=== PATIENT | male | born 1935 | race Caucasian/White ===

== ENCOUNTER 2017-09-13 10:01 | Inpatient (IN) | payer OTHER, MEDICARE, BC ==
[~2017-09-13] VITALS: Ht 185.4 cm; Wt 80.0 kg
[2017-09-13 10:34] LABS: BASOPHILS % (AUTO) 0.3 % (0-1); EOSINOPHILS # (AUTO) 0.1 X10'3 (0-0.9); EOSINOPHILS % (AUTO) 1.3 % (0-6); LYMPHOCYTES # (AUTO) 0.6 X10'3 (1.1-4.8); LYMPHOCYTES % (AUTO) 10.2 % (21-51); MEAN CORPUSCULAR HEMOGLOBIN 28.9 PG (27.0-31.0); MEAN CORPUSCULAR HGB CONC 33.2 % (33.0-36.5); MEAN CORPUSCULAR VOLUME 87.1 FL (78-98); MEAN PLATELET VOLUME 6.8 FL (7.4-10.4); MONOCYTES # (AUTO) 0.5 X10'3 (0-0.9); MONOCYTES % (AUTO) 8.8 % (2-12); NEUTROPHILS # (AUTO) 4.5 X10'3 (1.8-7.7); NEUTROPHILS % (AUTO) 79.4 % (42-75); PLATELET COUNT 307 X10'3 (140-440); RED BLOOD COUNT 2.05 X10'6 (4.70-6.10); RED CELL DISTRIBUTION WIDTH 21.1 % (11.5-14.5); WHITE BLOOD COUNT 5.7 X10'3 (4.5-11.0)
[2017-09-13 10:39] LABS: HEMATOCRIT 17.9 % (42.0-52.0); HEMOGLOBIN 5.9 g/dl (14.0-17.9)
[2017-09-13] MEDS ORDERED: ASPI-611 PO (10:48)
[2017-09-13] MEDS ORDERED: LEVO25TA7 PO (10:48)
[2017-09-13] MEDS ORDERED: GABA600T2 PO ×2 (10:48)
[2017-09-13] MEDS ORDERED: MELA3TAB PO (10:48)
[2017-09-13] MEDS ORDERED: METO25TA6 PO (10:48)
[2017-09-13] MEDS ORDERED: VALE100C PO (10:48)
[2017-09-13] MEDS ORDERED: TRAZ-146 PO (10:48)
[2017-09-13] MEDS ORDERED: TRAM50TA2 PO (10:48)
[2017-09-13] MEDS ORDERED: PRAV40TA3 PO (10:48)
[2017-09-13] MEDS ORDERED: DULO-31 PO (10:48)
[2017-09-13] MEDS ORDERED: PANT-47 PO (10:48)
[2017-09-13] MEDS ORDERED: DILT30TA5 PO (10:48)
[2017-09-13 10:57] LABS: ALANINE AMINOTRANSFERASE 13 U/L (12-78); ALBUMIN 2.8 G/DL (3.4-5.0); ALBUMIN/GLOBULIN RATIO 0.8 (1.1-1.5); ALKALINE PHOSPHATASE 57 IU/L (46-116); ANION GAP 6 (8-16); ASPARTATE AMINO TRANSFERASE 13 U/L (10-37); BILIRUBIN,TOTAL 0.5 MG/DL (0.1-1.0); BLOOD UREA NITROGEN 22 MG/DL (7-18); BUN/CREATININE RATIO 27.2 (5.4-32.0); CALCIUM 7.6 MG/DL (8.5-10.1); CHLORIDE 104 MMOL/L (99-107); CREATININE 0.81 MG/DL (0.60-1.10); GLUCOSE 107 MG/DL (70-104); MAGNESIUM 2.1 MG/DL (1.5-2.4); SODIUM 140 MMOL/L (135-145); TOTAL PROTEIN 6.5 G/DL (6.4-8.2); eGFR > 90 ML/MIN
[2017-09-13] MEDS ORDERED: pantoprazole 40MG/NS 100ML BAG 100 ML IV ONE (11:30)
[2017-09-13] MEDS ORDERED: pantoprazole 40 MG vial IV ONE (11:30)
[2017-09-13] MEDS ORDERED: ondansetron/PF 4mg/2ml inj IV PRN (12:05)
[2017-09-13] MEDS ORDERED: magnesium 4gm in 100ml NS 100 ML IV PRN (12:05)
[2017-09-13] MEDS ORDERED: mag hydrox/Alum hydrox/simeth 30ml oral suspension PO PRN (12:05)
[2017-09-13] MEDS ORDERED: acetaminophen 325mg tablet PO PRN (12:05)
[2017-09-13] MEDS ORDERED: magnesium 2GM in 50ml NS 50 ML IV PRN (12:05)
[2017-09-13] MEDS ORDERED: potassium Cl 40MEQ/NS 500ml 500 ML IV PRN ×2 (12:05)
[2017-09-13] MEDS ORDERED: potassium Cl 20 mEq SR tablet PO PRN ×2 (12:05)
[2017-09-13] MEDS ORDERED: magnesium Cl slow-release 64mg tablet PO PRN (12:05)
[2017-09-13] MEDS ORDERED: traMADol 50MG tablet PO PRN (12:05)
[2017-09-13] MEDS ORDERED: PEG 3350/Na sulf,bicarb,Cl/KCl oral sol 4 liter bottle PO ONE (12:15)
[2017-09-13 12:54] VITALS: BP 110/51
[2017-09-13] MEDS: normal saline 1000ml 1,000 ML IV SCH (13:20)
[2017-09-13] MEDS: diltiazem 30mg tablet PO SCH ×2 (13:22→20:19)
[2017-09-13 13:44] LABS: OCCULT BLOOD STOOL POSITIVE (Neg)
[2017-09-13] MEDS: pantoprazole 40MG/NS 100ML BAG 100 ML IV SCH ×3 (14:00→20:20)
[2017-09-13 15:08] VITALS: BP 116/60
[2017-09-13 16:12] VITALS: BP 115/61
[2017-09-13 16:30] VITALS: BP 120/65
[2017-09-13] MEDS: gabapentin 300mg capsule PO SCH (17:05)
[2017-09-13 17:30] VITALS: BP 145/73
[2017-09-13 18:40] VITALS: BP_SYST 103; BP_SYST 145; BP_DIAS 53; BP_DIAS 58
[2017-09-13] MEDS: metoprolol tartrate 25mg tablet PO SCH (20:19)
[2017-09-13] MEDS: traZODone 50mg tablet PO SCH (20:19)
[2017-09-13 20:50] LABS: HEMATOCRIT 23.5 % (42.0-52.0); HEMOGLOBIN 8.1 g/dl (14.0-17.9); MEAN CORPUSCULAR HEMOGLOBIN 30.3 PG (27.0-31.0); MEAN CORPUSCULAR HGB CONC 34.5 % (33.0-36.5); MEAN PLATELET VOLUME 6.8 FL (7.4-10.4); PLATELET COUNT 226 X10'3 (140-440); RED BLOOD COUNT 2.67 X10'6 (4.70-6.10); RED CELL DISTRIBUTION WIDTH 17.6 % (11.5-14.5); WHITE BLOOD COUNT 4.4 X10'3 (4.5-11.0)
[2017-09-13] MEDS ORDERED: pravastatin 40mg tablet PO SCH (21:00)
[2017-09-14] VITALS (19 sets, daily range): BP systolic 112–147; BP diastolic 50–80
[2017-09-14] MEDS: gabapentin 300mg capsule PO SCH ×3 (00:26→16:00)
[2017-09-14] MEDS: normal saline 1000ml 1,000 ML IV SCH ×2 (00:27→14:44)
[2017-09-14] MEDS: pantoprazole 40MG/NS 100ML BAG 100 ML IV SCH ×5 (00:27→19:43)
[2017-09-14 05:29] LABS: BASOPHILS % (AUTO) 0.4 % (0-1); EOSINOPHILS # (AUTO) 0.1 X10'3 (0-0.9); EOSINOPHILS % (AUTO) 1.4 % (0-6); HEMATOCRIT 22.4 % (42.0-52.0); HEMOGLOBIN 7.6 g/dl (14.0-17.9); LYMPHOCYTES # (AUTO) 0.8 X10'3 (1.1-4.8); LYMPHOCYTES % (AUTO) 20.4 % (21-51); MEAN CORPUSCULAR VOLUME 88.2 FL (78-98); MEAN PLATELET VOLUME 6.6 FL (7.4-10.4); MONOCYTES # (AUTO) 0.4 X10'3 (0-0.9); MONOCYTES % (AUTO) 10.3 % (2-12); NEUTROPHILS # (AUTO) 2.6 X10'3 (1.8-7.7); NEUTROPHILS % (AUTO) 67.5 % (42-75); PLATELET COUNT 215 X10'3 (140-440); RED BLOOD COUNT 2.54 X10'6 (4.70-6.10); RED CELL DISTRIBUTION WIDTH 17.5 % (11.5-14.5); WHITE BLOOD COUNT 3.8 X10'3 (4.5-11.0)
[2017-09-14 06:20] LABS: ALBUMIN 2.4 G/DL (3.4-5.0); ANION GAP 7 (8-16); BLOOD UREA NITROGEN 14 MG/DL (7-18); CALCIUM 7.3 MG/DL (8.5-10.1); CHLORIDE 108 MMOL/L (99-107); GLUCOSE 86 MG/DL (70-104); MAGNESIUM 1.9 MG/DL (1.5-2.4); POTASSIUM 3.7 MMOL/L (3.5-5.1); SODIUM 143 MMOL/L (135-145); TOTAL CARBON DIOXIDE 28.2 MMOL/L (24-32); eGFR > 90 ML/MIN
[2017-09-14] MEDS: K and/or MAG REPLACEMENT MC SCH (08:00)
[2017-09-14] MEDS: duloxetine 30mg CAPSULE.DR PO SCH (08:08)
[2017-09-14] MEDS: atorvastatin 10mg tablet PO SCH (08:08)
[2017-09-14] MEDS: diltiazem 30mg tablet PO SCH ×3 (08:08→20:32)
[2017-09-14] MEDS: levoTHYROXINE 25mcg tablet PO SCH (08:08)
[2017-09-14] MEDS: metoprolol tartrate 25mg tablet PO SCH ×2 (08:08→20:31)
[2017-09-14] MEDS ORDERED: fentaNYL/PF 50MCG/1 ML 2ML syringe ONE (13:12)
[2017-09-14] MEDS ORDERED: MIDAZolam 5mg/ml 2ml vial ONE (13:12)
[2017-09-14] MEDS ORDERED: LIDOcaine Viscous 15ml cup ONE (13:13)
[2017-09-14 17:48] LABS: HEMATOCRIT 23.4 % (42.0-52.0); MEAN CORPUSCULAR HGB CONC 34.4 % (33.0-36.5); MEAN CORPUSCULAR VOLUME 87.3 FL (78-98); MEAN PLATELET VOLUME 6.5 FL (7.4-10.4); PLATELET COUNT 206 X10'3 (140-440); RED BLOOD COUNT 2.68 X10'6 (4.70-6.10); RED CELL DISTRIBUTION WIDTH 17.9 % (11.5-14.5); WHITE BLOOD COUNT 4.2 X10'3 (4.5-11.0)
[2017-09-14] MEDS ORDERED: normal saline 1000ml 1,000 ML IV SCH (20:19)
[2017-09-14] MEDS ORDERED: simethicone 40mg/0.6ml oral drops 30ml MC ONE (20:20)
[2017-09-14] MEDS ORDERED: fentaNYL/PF 50MCG/1 ML 2ML syringe IV PRN (20:20)
[2017-09-14] MEDS ORDERED: MIDAZolam 5mg/ml 2ml vial IV PRN (20:20)
[2017-09-14] MEDS: traZODone 50mg tablet PO SCH (20:31)
[2017-09-15] MEDS: gabapentin 300mg capsule PO SCH ×2 (00:05→08:00)
[2017-09-15] MEDS: pantoprazole 40MG/NS 100ML BAG 100 ML IV SCH ×3 (00:05→11:13)
[2017-09-15 04:30] VITALS: BP 128/72
[2017-09-15] MEDS: normal saline 1000ml 1,000 ML IV SCH (04:37)
[2017-09-15 05:59] LABS: BASOPHILS % (AUTO) 0.3 % (0-1); EOSINOPHILS # (AUTO) 0.1 X10'3 (0-0.9); EOSINOPHILS % (AUTO) 1.8 % (0-6); HEMATOCRIT 22.4 % (42.0-52.0); HEMOGLOBIN 7.7 g/dl (14.0-17.9); LYMPHOCYTES # (AUTO) 0.7 X10'3 (1.1-4.8); LYMPHOCYTES % (AUTO) 15.6 % (21-51); MEAN CORPUSCULAR HEMOGLOBIN 30.1 PG (27.0-31.0); MEAN CORPUSCULAR HGB CONC 34.2 % (33.0-36.5); MEAN PLATELET VOLUME 6.4 FL (7.4-10.4); MONOCYTES # (AUTO) 0.4 X10'3 (0-0.9); MONOCYTES % (AUTO) 8.3 % (2-12); NEUTROPHILS # (AUTO) 3.5 X10'3 (1.8-7.7); PLATELET COUNT 203 X10'3 (140-440); RED BLOOD COUNT 2.55 X10'6 (4.70-6.10); RED CELL DISTRIBUTION WIDTH 17.9 % (11.5-14.5); WHITE BLOOD COUNT 4.7 X10'3 (4.5-11.0)
[2017-09-15 06:26] LABS: ALBUMIN 2.4 G/DL (3.4-5.0); ANION GAP 9 (8-16); BLOOD UREA NITROGEN 7 MG/DL (7-18); BUN/CREATININE RATIO 11.7 (5.4-32.0); CALCIUM 7.1 MG/DL (8.5-10.1); CHLORIDE 105 MMOL/L (99-107); GLUCOSE 82 MG/DL (70-104); MAGNESIUM 1.8 MG/DL (1.5-2.4); POTASSIUM 3.6 MMOL/L (3.5-5.1); SODIUM 141 MMOL/L (135-145); TOTAL CARBON DIOXIDE 26.9 MMOL/L (24-32); eGFR > 90 ML/MIN
[2017-09-15] MEDS: K and/or MAG REPLACEMENT MC SCH (07:50)
[2017-09-15] MEDS: atorvastatin 10mg tablet PO SCH (07:57)
[2017-09-15] MEDS: levoTHYROXINE 25mcg tablet PO SCH (07:57)
[2017-09-15] MEDS: diltiazem 30mg tablet PO SCH ×2 (07:57→13:41)
[2017-09-15] MEDS: metoprolol tartrate 25mg tablet PO SCH (07:57)
[2017-09-15] MEDS: duloxetine 30mg CAPSULE.DR PO SCH (07:57)
[2017-09-15 08:00] VITALS: BP 136/64
[2017-09-15 12:00] VITALS: BP 151/74
[2017-09-15 13:51] LABS: HEMATOCRIT 23.6 % (42.0-52.0); HEMOGLOBIN 8.2 g/dl (14.0-17.9); MEAN CORPUSCULAR HEMOGLOBIN 30.3 PG (27.0-31.0); MEAN CORPUSCULAR HGB CONC 34.6 % (33.0-36.5); MEAN CORPUSCULAR VOLUME 87.7 FL (78-98); MEAN PLATELET VOLUME 6.3 FL (7.4-10.4); PLATELET COUNT 224 X10'3 (140-440); RED BLOOD COUNT 2.69 X10'6 (4.70-6.10); RED CELL DISTRIBUTION WIDTH 17.6 % (11.5-14.5); WHITE BLOOD COUNT 4.6 X10'3 (4.5-11.0)
[2017-09-15] MEDS ORDERED: LEVO500T89 PO (16:11)
[2017-09-15] MEDS ORDERED: FERR325T32 PO (16:18)
== END 2017-09-15 17:05 | disposition home health service (06) | DRG 377 ==
LOC: ER 10:02 → ED HOLD 12:04 → EDBEDREQ 14:17 → MED 3N 14:44
PROVIDERS: ADMIT Internal Medicine; ATTEND Internal Medicine
PROC: 30233N1 Transfusion of Nonautologous Red Blood Cells into Peripheral Vein, Percutaneous Approach (ICD-10-PCS; 2017-09-13)
PROC: 0DJ08ZZ Inspection of Upper Intestinal Tract, Via Natural or Artificial Opening Endoscopic (ICD-10-PCS; principal; 2017-09-14)
PROC: 0DBK8ZX Excision of Ascending Colon, Via Natural or Artificial Opening Endoscopic, Diagnostic (ICD-10-PCS; 2017-09-14)
PROC: 0DBN8ZX Excision of Sigmoid Colon, Via Natural or Artificial Opening Endoscopic, Diagnostic (ICD-10-PCS; 2017-09-14)
DX: K92.1 Melena (principal); J15.9 Unspecified bacterial pneumonia; L89.152 Pressure ulcer of sacral region, stage 2; D62 Acute posthemorrhagic anemia; K22.2 Esophageal obstruction; K44.9 Diaphragmatic hernia without obstruction or gangrene; E03.9 Hypothyroidism, unspecified; E78.5 Hyperlipidemia, unspecified; D12.5 Benign neoplasm of sigmoid colon; D12.2 Benign neoplasm of ascending colon; D72.819 Decreased white blood cell count, unspecified; G47.00 Insomnia, unspecified; I10 Essential (primary) hypertension; I25.10 Atherosclerotic heart disease of native coronary artery without angina pectoris; I71.4 Abdominal aortic aneurysm, without rupture; Z60.2 Problems related to living alone; F17.290 Nicotine dependence, other tobacco product, uncomplicated; Z79.899 Other long term (current) drug therapy; Z90.49 Acquired absence of other specified parts of digestive tract; Z71.6 Tobacco abuse counseling
CPT/HCPCS: 36415; 45385; 71045; 74176; 80048; 80053; 82272; 83735; 83880; 84443; 84484; 85025; 85027; 86885; 86900; 86901; 86920; 87070; 93005; 96365; 96375; 99285; A4620; A6213; C9113; G0500; J2250; J2405; J3010; J7030; P9016

== ENCOUNTER 2017-10-02 12:54 | Emergency (ER) | payer OTHER, MEDICARE, BC ==
[~2017-10-02] VITALS: Ht 185.4 cm; Wt 72.7 kg
[~2017-10-02 12:54] MED LIST: DILT30TA5 PO; DULO-31 PO; FERR325T32 PO; GABA600T2 PO; LEVO25TA7 PO; LEVO500T89 PO; MELA3TAB PO; METO25TA6 PO; PANT-47 PO; PRAV40TA3 PO; TRAM50TA2 PO; TRAZ-146 PO; VALE100C PO
[2017-10-02] MEDS ORDERED: normal saline 1000ML IV soln IVB ONE (14:15)
[2017-10-02 14:32] LABS: BASOPHILS % (AUTO) 0.2 % (0-1); EOSINOPHILS # (AUTO) 0.1 X10'3 (0-0.9); EOSINOPHILS % (AUTO) 1.2 % (0-6); HEMATOCRIT 31.8 % (42.0-52.0); HEMOGLOBIN 10.4 g/dl (14.0-17.9); LYMPHOCYTES # (AUTO) 0.8 X10'3 (1.1-4.8); LYMPHOCYTES % (AUTO) 14.8 % (21-51); MEAN CORPUSCULAR HEMOGLOBIN 28.8 PG (27.0-31.0); MEAN CORPUSCULAR HGB CONC 32.8 % (33.0-36.5); MEAN CORPUSCULAR VOLUME 87.8 FL (78-98); MONOCYTES # (AUTO) 0.5 X10'3 (0-0.9); MONOCYTES % (AUTO) 8.6 % (2-12); NEUTROPHILS # (AUTO) 4.2 X10'3 (1.8-7.7); NEUTROPHILS % (AUTO) 75.2 % (42-75); PLATELET COUNT 267 X10'3 (140-440); RED BLOOD COUNT 3.62 X10'6 (4.70-6.10); RED CELL DISTRIBUTION WIDTH 20.3 % (11.5-14.5); WHITE BLOOD COUNT 5.5 X10'3 (4.5-11.0)
[2017-10-02 14:47] LABS: ALANINE AMINOTRANSFERASE 14 U/L (12-78); ALBUMIN 2.9 G/DL (3.4-5.0); ALBUMIN/GLOBULIN RATIO 0.7 (1.1-1.5); ALKALINE PHOSPHATASE 70 IU/L (46-116); ANION GAP 4 (8-16); ASPARTATE AMINO TRANSFERASE 15 U/L (10-37); BILIRUBIN,TOTAL 0.4 MG/DL (0.1-1.0); BLOOD UREA NITROGEN 17 MG/DL (7-18); BUN/CREATININE RATIO 18.9 (5.4-32.0); CHLORIDE 104 MMOL/L (99-107); GLUCOSE 100 MG/DL (70-104); LIPASE 155 U/L (73-393); POTASSIUM 4.2 MMOL/L (3.5-5.1); SODIUM 140 MMOL/L (135-145); TOTAL CARBON DIOXIDE 32.2 MMOL/L (24-32); TOTAL PROTEIN 7.1 G/DL (6.4-8.2); eGFR 81 ML/MIN
[2017-10-02 15:11] LABS: CLARITY,URINE SLIGHTLY CLOUDY (Clear); COLOR,URINE YELLOW (Yellow); GLUCOSE, URINE NEGATIVE (Neg); KETONES,URINE NEGATIVE (Neg); LEUKOCYTE ESTERASE ,URINE NEGATIVE (Neg); NITRITES, URINE NEGATIVE (Neg); OCCULT BLOOD,URINE NEGATIVE (Neg); PH,URINE 6.5 (4.8-8.0); PROTEIN,URINE TRACE mg/dl (Neg)
[2017-10-02 15:12] LABS: UA COLLECTION TYPE FOLEY CATH
[2017-10-02 15:17] LABS: MUCUS STRANDS MANY /LPF (Neg); SQUAMOUS EPITHELIAL CELL,UR FEW /LPF (FEW)
[2017-10-02 15:19] LABS: BACTERIA,URINE NONE SEEN /HPF (Neg); RBC,URINE 0-2 /HPF (0-2); TRANSITIONAL EPI CELLS,URINE FEW /HPF; WBC,URINE 0-4 /HPF (0-4)
[2017-10-02] MEDS ORDERED: BISA10SU60 RC (16:04)
[2017-10-02 18:00] VITALS: BP 145/65
== END 2017-10-02 18:02 | disposition home or self-care (01) ==
LOC: ER 12:54
DX: K62.89 Other specified diseases of anus and rectum (principal); K59.00 Constipation, unspecified; E78.00 Pure hypercholesterolemia, unspecified; G62.9 Polyneuropathy, unspecified; Z90.49 Acquired absence of other specified parts of digestive tract; Z60.2 Problems related to living alone; Z79.899 Other long term (current) drug therapy
CPT/HCPCS: 36415; 51702; 71045; 74176; 80053; 81001; 83690; 85025; 93005; 96360; 99285; A4315; J7030

== ENCOUNTER 2018-09-07 14:11 | Emergency (ER) | payer MEDICARE, BC, OTHER ==
[~2018-09-07] VITALS: Ht 170.2 cm; Wt 79.5 kg
[~2018-09-07 14:11] MED LIST changes: +BISA10SU60 RC; +GABA600T13 PO; -GABA600T2 PO; -LEVO500T89 PO; -TRAZ-146 PO; +TRAZ-219 PO
[2018-09-07] MEDS ORDERED: normal saline 1000ML IV soln IVB ONE (14:20)
[2018-09-07 14:51] LABS: BASOPHILS % (AUTO) 0.5 % (0-1); EOSINOPHILS % (AUTO) 0.1 % (0-6); HEMATOCRIT 29.8 % (42.0-52.0); LYMPHOCYTES # (AUTO) 0.7 X10'3 (1.1-4.8); LYMPHOCYTES % (AUTO) 7.3 % (21-51); MEAN CORPUSCULAR HEMOGLOBIN 28.3 PG (27.0-31.0); MEAN CORPUSCULAR HGB CONC 33.7 g/dL (33.0-36.5); MEAN CORPUSCULAR VOLUME 83.9 FL (78-98); MEAN PLATELET VOLUME 7.7 FL (7.4-10.4); MONOCYTES # (AUTO) 0.6 X10'3 (0-0.9); MONOCYTES % (AUTO) 6.6 % (2-12); NEUTROPHILS # (AUTO) 8.1 X10'3 (1.8-7.7); NEUTROPHILS % (AUTO) 85.5 % (42-75); PLATELET COUNT 228 X10'3 (140-440); RED BLOOD COUNT 3.55 X10'6 (4.70-6.10); RED CELL DISTRIBUTION WIDTH 18.1 % (11.5-14.5); WHITE BLOOD COUNT 9.4 X10'3 (4.5-11.0)
[2018-09-07 14:56] LABS: INR 1.1 INR; PARTIAL THROMBOPLASTIN TIME 28 SECONDS (22-32); PROTHROMBIN TIME 11.5 SECONDS (9.0-12.0)
[2018-09-07 15:00] LABS: ALANINE AMINOTRANSFERASE 10 U/L (12-78); ALBUMIN 2.9 G/DL (3.4-5.0); ALBUMIN/GLOBULIN RATIO 0.7 (1.1-1.5); ALKALINE PHOSPHATASE 62 IU/L (46-116); ANION GAP 8 (8-16); ASPARTATE AMINO TRANSFERASE 12 U/L (10-37); BILIRUBIN,TOTAL 0.4 MG/DL (0.1-1.0); BLOOD UREA NITROGEN 47 MG/DL (7-18); CHLORIDE 105 MMOL/L (99-107); CREATININE 0.81 MG/DL (0.60-1.10); GLUCOSE 109 MG/DL (70-104); POTASSIUM 4.1 MMOL/L (3.5-5.1); SODIUM 141 MMOL/L (135-145); TOTAL CARBON DIOXIDE 27.6 MMOL/L (24-32); TOTAL PROTEIN 6.8 G/DL (6.4-8.2); eGFR > 90 ML/MIN
[2018-09-07 15:08] LABS: LIPASE 118 U/L (73-393); MAGNESIUM 1.7 MG/DL (1.5-2.4)
[2018-09-07 15:17] VITALS: BP 145/73
== END 2018-09-07 19:22 | disposition home or self-care (01) ==
LOC: ER 14:11
DX: K56.41 Fecal impaction (principal); R05 Cough; E78.00 Pure hypercholesterolemia, unspecified; Z79.899 Other long term (current) drug therapy; Z90.49 Acquired absence of other specified parts of digestive tract; Z60.2 Problems related to living alone
CPT/HCPCS: 36415; 71045; 74176; 80053; 83690; 83735; 83880; 84484; 85025; 85610; 85730; 93005; 99284; J7030